=== PATIENT | male | born 1970 | race Caucasian/White ===

== ENCOUNTER 2019-04-04 15:37 | Emergency (ER) | payer SELFPAY ==
[~2019-04-04] VITALS: Ht 175.3 cm; Wt 81.6 kg
[2019-04-04 15:57] VITALS: BP 142/89
[2019-04-04] MEDS ORDERED: NEOMY/BACITR/POLYMYXIN OINT PACKET. TP ONE (16:15)
[2019-04-04] MEDS ORDERED: HYDROcodone/APAP 5/325MG 1 TAB TABLET PO ONE (16:15)
[2019-04-04] MEDS ORDERED: DIPHTH,PERTUSS(ACELL),TET TOX 0.5 ML DISP.SYRIN. VAX IM ONE (16:15)
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
[2019-04-04] MEDS ORDERED: HYDR-2761 PO (17:38)
[2019-04-04] MEDS ORDERED: BACI28.32 TP (17:38)
== END 2019-04-04 17:41 | disposition home or self-care (01) ==
LOC: ER 15:37
DX: S42.002A Fracture of unspecified part of left clavicle, initial encounter for closed fracture (principal); S50.812A Abrasion of left forearm, initial encounter; S40.812A Abrasion of left upper arm, initial encounter; S60.511A Abrasion of right hand, initial encounter; S30.811A Abrasion of abdominal wall, initial encounter; Z23 Encounter for immunization; V89.9XXA Person injured in unspecified vehicle accident, initial encounter; Y93.89 Activity, other specified; Y92.89 Other specified places as the place of occurrence of the external cause; Y99.8 Other external cause status
CPT/HCPCS: 73000; 73080; 73130; 90471; 90715; 99284